=== PATIENT | female | born 1985 | race Two or more races ===

== ENCOUNTER → 2025-02-18 | Outpatient (CLI) | payer BC, SELFPAY ==
--- NOTE | 2025-02-18 12:30 | XR_ITS ---
Examination: Breast ultrasound complete, bilateral Date and time of exam: February 18, 2025 1241 hours INDICATIONS: Left breast pain beginning 10 years ago, family history Sr. breast cancer Technique: Real-time grayscale ultrasonographic imaging bilateral breasts, including all 4 quadrants as well as nipple retroareolar and axillary regions. Findings: Sonographic images right and left breast demonstrated multiple benign cysts No solid nodules noted IMPRESSION: BI-RADS Category 2: Benign findings
--- NOTE | 2025-02-18 13:30 | XR_ITS ---
Examination: Screening digital mammography, bilateral Computer aided detection 3-D breast Tomosynthesis, bilateral Date and time of exam: February 18, 2025 at 1305 hours INDICATIONS: Left breast pain years Technique: Nonmagnified MLO, CC views of the breasts to been obtained, reconstructed from 3-D Tomosynthesis images. R2 computer aided detection program utilized for evaluation of suspicious masses and/or abnormal calcifications. 3-D Tomosynthesis images obtained. Findings: The breasts are heterogeneously dense, which may obscure small masses 3 cm partially circumscribed mass 3:00 position left breast corresponding to 3:00 cyst described on left breast sonogram today Impression: BI-RADS Category 2: Benign findings retroareolar region left breast Recommend yearly follow-up mammography
== END | disposition home or self-care (01) ==
LOC: CDIM 12:15
PROVIDERS: PCP Internal Medicine; Referring Provider Internal Medicine; Visit Provider Internal Medicine
DX: Z12.31 Encounter for screening mammogram for malignant neoplasm of breast (principal); R92.323 Mammographic fibroglandular density, bilateral breasts; Z80.3 Family history of malignant neoplasm of breast
CPT/HCPCS: 76641; 77063; 77067